=== PATIENT | male | born 1990 | race Caucasian/White ===

== ENCOUNTER 2017-11-25 10:00 | Emergency (ER) | payer OTHER ==
[~2017-11-25] VITALS: Ht 167.6 cm; Wt 56.8 kg
[~2017-11-25 10:00] MED LIST: DOCU-119 PO; VICOT PO
[2017-11-25] MEDS ORDERED: IBUPROFEN 600 MG TABLET PO ONE (12:15)
[2017-11-25 13:16] VITALS: BP 120/75
== END 2017-11-25 13:17 | disposition home or self-care (01) ==
LOC: EMS 10:02
DX: S63.615A Unspecified sprain of left ring finger, initial encounter (principal); F17.210 Nicotine dependence, cigarettes, uncomplicated; Z88.0 Allergy status to penicillin; W22.8XXA Striking against or struck by other objects, initial encounter; Y93.89 Activity, other specified; Y92.89 Other specified places as the place of occurrence of the external cause; Y99.8 Other external cause status
CPT/HCPCS: 99283; 99406